=== PATIENT | male | born 1955 | race Caucasian/White ===

== ENCOUNTER 2017-04-10 20:27 | Inpatient (IN) | payer MEDICARE, OTHER ==
[~2017-04-10] VITALS: Ht 170.2 cm; Wt 83.0 kg
[~2017-04-10 20:27] MED LIST: ABILIFY10 MG ORAL; AMIODARONE HCL400 M1 ORAL; ASPIR 8181 MG ORAL; BACTRIM DS TAB1 EAC1 ORAL; BACTRIM-DS1 EA ORAL; BUPROPION HCL100 MG ORAL; BYSTOLIC2.5 MG ORAL; CEPHALEXIN500 MG ORAL; CYMBALTA20 MG ORAL; ECOTRIN325 MG PO; EFFIENT10 MG PO; HUMALOG100 UNIT/1 SUBQ; HUMALOG100 UNIT/4 SUBQ; INVOKANA100 MG PO; KLONOPIN1 MG ORAL; LANSOPRAZOLE30 MG ORAL; LANTUS SOL100 UNIT/1 SUBQ; LASIX20 M1 ORAL; LISINOPRIL10 MG ORAL; LYRICA75 M1 ORAL; METOPROLOL TART25 MG ORAL; NIASPAN1000 MG ORAL; NORCO 5-325 TA1 EACH ORAL; ONGLYZA5 MG PO; PERMETHRIN60 GM TOPIC; POTASSIUM CHLO20 ME1 ORAL; PROTONIX40 MG ORAL; TAMSULOSIN HCL0.4 MG ORAL; TENORMIN25 MG ORAL; WELCHOL625 MG ORAL; WELLBUTRIN SR100 MG ORAL; ZETIA10 MG ORAL; ZOLPIDEM TARTRA10 MG ORAL; lantus solostar SQ
[2017-04-10 20:30] VITALS: BP 107/68
[2017-04-10 20:35] VITALS: BP 107/68
[2017-04-10] MEDS ORDERED: Aspirin Baby 81mg ORAL ONE (21:30)
--- NOTE | 2017-04-10 21:53 | Emergency Room Report ---
History of Present Illness General Chief Complaint: Abdominal Pain Source: Patient Present Illness HPI Is a 61-year-old male with a history diabetes and high blood pressure. Also history of CAD with previous MIs and stents. His last stress test was about 2 years ago. He presents with chief complaint of chest pressure with exertion. This has been ongoing for last 2 days. On and off. Lasted about 5 minutes and resolved with rest. he said his pain start epigastric area and radiate to his neck. He called 911. He has no pain now. EMS did not give him aspirin or nitroglycerin. Allergies: Coded Allergies: SHELLFISH DERIVED (Verified Allergy, Severe, facial swelling, 01/03/13) ERYTHROMYCIN BASE (Unverified Allergy, Intermediate, 04/10/17) ETHYL ALCOHOL (Unverified Allergy, Intermediate, 04/10/17) LEVOFLOXACIN (Verified Allergy, Intermediate, Rash, 10/19/14) Uncoded Allergies: satins (Allergy, Mild, Rash, 08/11/15) Patient History Past Medical History: see triage record, old chart reviewed, DM, HTN, VT, CAD, psych hx Past Surgical History: other Pertinent Family History: none Social History: Denies: smoking Immunizations: other Reviewed Nursing Documentation: PMH: Agreed, PSxH: Agreed Nursing Documentation-PMH Hx Cardiac Problems: Yes - stent, heart attack 2014, bypass 2014 Hx Pacemaker: No - FOOT DROP JAN Hx Diabetes: Yes Review of Systems Eye: Denies: eye pain, blurred vision ENT: Denies: ear pain, nose congestion, throat swelling Respiratory: Denies: cough, shortness of breath Cardiovascular: Reports: chest pain, Denies: palpitations Gastrointestinal: Denies: abdominal pain, diarrhea, nausea, vomiting Musculoskeletal: Denies: back pain, joint pain Skin: Denies: rash Neurological: Denies: headache, numbness Endocrine: Denies: increased thirst, increased urine Hematologic/Lymphatic: Denies: easy bruising All Other Systems: negative except mentioned in HPI Physical Exam Vital Signs Date Time Temp Pulse Resp B/P (MAP) Pulse Ox O2 Delivery O2 Flow Rate FiO2 04/10/17 20:19 98.6 88 16 107/68 99 Room Air 98.6 vitals normal Sp02 EP Interpretation: reviewed, normal General Appearance: well appearing, no apparent distress, alert Head: normocephalic, atraumatic Eyes: bilateral eye PERRL, bilateral eye EOMI ENT: hearing grossly normal, normal pharynx Neck: full range of motion, supple, no meningismus Respiratory: chest non-tender, lungs clear, normal breath sounds Cardiovascular #1: regular rate, rhythm, no murmur Gastrointestinal: normal bowel sounds, non tender, no mass, no organomegaly, no bruit, non-distended Musculoskeletal: back normal, gait/station normal, normal range of motion Psychiatric: mood/affect normal Skin: warm/dry Medical Decision Making Diagnostic Impression: Primary Impression: ACS (acute coronary syndrome) ER Course This patient presents with symptom concerning for ACS and unstable angina. He is pain-free arrival. Aspirin given here. Lovenox given here. EKG is unremarkable. Troponin is intermediate. Will admit for further workup and cardiology consult. I contacted Dr. Smith who is covering for Dr. Luciano. Lab Results Impression labs with elevated troponin EKG Diagnostic Results Rate: normal Rhythm: NSR ST Segments: no acute changes ASA given to the pt in ED: Yes Rhythm Strip Diag. Results Rhythm Strip Time: 00:06 EP Interpretation: yes Rate: 82 Rhythm: NSR, no PVC's, no ectopy Chest X-Ray Diagnostic Results Chest X-Ray Diagnostic Results : Chest X-Ray Ordered: Yes # of Views/Limited/Complete: 1 View Indication: Chest Pain EP Interpretation: Yes Interpretation: no consolidation, no effusion, no pneumothorax, no acute cardiopulmonary disease Impression: No acute disease Last Vital Signs Date Time Temp Pulse Resp B/P (MAP) Pulse Ox O2 Delivery O2 Flow Rate FiO2 04/10/17 20:35 98.6 88 16 107/68 99 Room Air 98.6 Status: improved Disposition: ADMITTED INPATIENT Condition: Serious MERCY QUAN M.D. Apr 10, 2017 21:53
[2017-04-10 22:50] LABS: BASOPHILS % (AUTO) 1.3 % (0.0-2.0); EOSINOPHILS % (AUTO) 2.1 % (0.0-3.0); HEMATOCRIT 52.5 % (42.0-52.0); HEMOGLOBIN 17.7 G/DL (14.2-18.0); LYMPHOCYTES % (AUTO) 20.6 % (20.0-45.0); MEAN CORPUSCULAR VOLUME 88 FL (80-99); MONOCYTES % (AUTO) 8.6 % (1.0-10.0); NEUTROPHILS % (AUTO) 67.4 % (45.0-75.0); PLATELET COUNT 269 K/UL (150-450); RED BLOOD COUNT 5.99 M/UL (4.70-6.10); RED CELL DISTRIBUTION WIDTH 12.8 % (11.6-14.8); WHITE BLOOD COUNT 7.4 K/UL (4.8-10.8)
[2017-04-10 22:58] LABS: ANION GAP 3 mmol/L (5-15); BLOOD UREA NITROGEN 8 mg/dL (7-18); CALCIUM 9.9 MG/DL (8.5-10.1); CARBON DIOXIDE 32 MMOL/L (21-32); CHLORIDE 96 MMOL/L (98-107); CREATININE 0.9 MG/DL (0.55-1.30); POTASSIUM 4.1 MMOL/L (3.5-5.1); SODIUM 131 MMOL/L (136-145)
[2017-04-10 23:11] LABS: ALANINE AMINOTRANSFERASE 19 U/L (12-78); ALBUMIN 3.9 G/DL (3.4-5.0); ALKALINE PHOSPHATASE 112 U/L (46-116); ASPARTATE AMINO TRANSFERASE 13 U/L (15-37); BILIRUBIN,TOTAL 0.5 MG/DL (0.2-1.0); CKMB 1.5 NG/ML (0.0-3.6); CREATINE KINASE 61 U/L (26-308)
[2017-04-10] MEDS ORDERED: Enoxaparin 80mg Inj SUBQ ONE (23:30)
[2017-04-10 23:35] LABS: APPEARANCE,URINE CLEAR; BILIRUBIN, URINE NEGATIVE (NEGATIVE); COLOR,URINE PALE YELLOW; GLUCOSE, URINE (UA) 4+ (NEGATIVE); KETONES,URINE NEGATIVE (NEGATIVE); LEUKOCYTE ESTERASE ,URINE NEGATIVE (NEGATIVE); NITRITE,URINE NEGATIVE (NEGATIVE); PH,URINE 7 (4.5-8.0); PROTEIN,URINE NEGATIVE (NEGATIVE); UROBILINOGEN,URINE NORMAL MG/DL (0.0-1.0)
[2017-04-10] MEDS ORDERED: Enoxaparin 100mg Inj SUBQ ONE (23:45)
[2017-04-11 04:00] VITALS: BP 117/74
[2017-04-11 08:00] VITALS: BP 125/72
[2017-04-11] MEDS: Amiodarone 200mg tab ORAL SCH ×2 (09:00→09:50)
[2017-04-11] MEDS: Lyrica 50mg cap ORAL SCH ×2 (09:00→12:12)
[2017-04-11] MEDS: DULoxetine 30mg cap ORAL SCH (09:48)
[2017-04-11] MEDS: Aspirin Baby 81mg ORAL SCH (09:49)
--- NOTE | 2017-04-11 09:51 | Cardiac Electrophysiology PN ---
Subjective Subjective Cardiology consult dictated [id number] Objective Last 24 Hour Vital Signs Date Time Temp Pulse Resp B/P (MAP) Pulse Ox O2 Delivery O2 Flow Rate FiO2 04/11/17 04:00 97.4 79 20 117/74 96 Room Air 04/11/17 03:52 71 04/11/17 01:05 98.6 88 16 107/68 99 Room Air 98.6 04/10/17 20:35 98.6 88 16 107/68 99 Room Air 98.6 04/10/17 20:30 98.6 16 107/68 99 Room Air 98.6 04/10/17 20:19 98.6 88 16 107/68 99 Room Air 98.6 Intake and Output 04/10/17 04/11/17 19:00 07:00 Intake Total 0 ml Balance 0 ml Intake Oral 0 ml # Voids 1 Laboratory Tests Test 04/10/17 22:20 04/10/17 23:10 White Blood Count 7.4 K/UL (4.8-10.8) Red Blood Count 5.99 M/UL (4.70-6.10) Hemoglobin 17.7 G/DL (14.2-18.0) Hematocrit 52.5 % (42.0-52.0) H Mean Corpuscular Volume 88 FL (80-99) Mean Corpuscular Hemoglobin 29.6 PG (27.0-31.0) Mean Corpuscular Hemoglobin Concent 33.7 G/DL (32.0-36.0) Red Cell Distribution Width 12.8 % (11.6-14.8) Platelet Count 269 K/UL (150-450) Mean Platelet Volume 6.3 FL (6.5-10.1) L Neutrophils (%) (Auto) 67.4 % (45.0-75.0) Lymphocytes (%) (Auto) 20.6 % (20.0-45.0) Monocytes (%) (Auto) 8.6 % (1.0-10.0) Eosinophils (%) (Auto) 2.1 % (0.0-3.0) Basophils (%) (Auto) 1.3 % (0.0-2.0) Sodium Level 131 MMOL/L (136-145) L Potassium Level 4.1 MMOL/L (3.5-5.1) Chloride Level 96 MMOL/L (98-107) L Carbon Dioxide Level 32 MMOL/L (21-32) Anion Gap 3 mmol/L (5-15) L Blood Urea Nitrogen 8 mg/dL (7-18) Creatinine 0.9 MG/DL (0.55-1.30) Estimat Glomerular Filtration Rate > 60 mL/min (>60) Glucose Level 253 MG/DL (74-106) H Calcium Level 9.9 MG/DL (8.5-10.1) Total Bilirubin 0.5 MG/DL (0.2-1.0) Aspartate Amino Transf (AST/SGOT) 13 U/L (15-37) L Alanine Aminotransferase (ALT/SGPT) 19 U/L (12-78) Alkaline Phosphatase 112 U/L (46-116) Total Creatine Kinase 61 U/L (26-308) Creatine Kinase MB 1.5 NG/ML (0.0-3.6) Creatine Kinase MB Relative Index 2.4 Troponin I 0.071 ng/mL (0.000-0.056) Total Protein 8.0 G/DL (6.4-8.2) Albumin 3.9 G/DL (3.4-5.0) Globulin 4.1 g/dL Albumin/Globulin Ratio 1.0 (1.0-2.7) Urine Color Pale yellow Urine Appearance Clear Urine pH 7 (4.5-8.0) Urine Specific [place] 1.010 (1.005-1.035) Urine Protein Negative (NEGATIVE) Urine Glucose (UA) 4+ (NEGATIVE) H Urine Ketones Negative (NEGATIVE) Urine Occult Blood Negative (NEGATIVE) Urine Nitrite Negative (NEGATIVE) Urine Bilirubin Negative (NEGATIVE) Urine Urobilinogen Normal MG/DL (0.0-1.0) Urine Leukocyte Esterase Negative (NEGATIVE) Urine Opiates Screen Negative (NEGATIVE) Urine Barbiturates Screen Negative (NEGATIVE) Phencyclidine (PCP) Screen Negative (NEGATIVE) Urine Amphetamines Screen Negative (NEGATIVE) Urine Benzodiazepines Screen Negative (NEGATIVE) Urine Cocaine Screen Negative (NEGATIVE) Urine Marijuana (THC) Screen Negative (NEGATIVE) ANDREW BELTRAN Apr 11, 2017 09:51
[2017-04-11 10:23] LABS: BASOPHILS % (AUTO) 0.4 % (0.0-2.0); EOSINOPHILS % (AUTO) 1.9 % (0.0-3.0); HEMATOCRIT 56.1 % (42.0-52.0); LYMPHOCYTES % (AUTO) 16.5 % (20.0-45.0); MEAN CORPUSCULAR VOLUME 88 FL (80-99); MONOCYTES % (AUTO) 9.7 % (1.0-10.0); NEUTROPHILS % (AUTO) 71.5 % (45.0-75.0); PLATELET COUNT 279 K/UL (150-450); RED BLOOD COUNT 6.35 M/UL (4.70-6.10); RED CELL DISTRIBUTION WIDTH 12.7 % (11.6-14.8); WHITE BLOOD COUNT 7.8 K/UL (4.8-10.8)
[2017-04-11 10:27] LABS: HEMOGLOBIN 18.3 G/DL (14.2-18.0)
[2017-04-11 10:35] LABS: ANION GAP 11 mmol/L (5-15); BLOOD UREA NITROGEN 9 mg/dL (7-18); CALCIUM 10.1 MG/DL (8.5-10.1); CARBON DIOXIDE 26 MMOL/L (21-32); CHLORIDE 96 MMOL/L (98-107); CREATININE 0.9 MG/DL (0.55-1.30); POTASSIUM 4.5 MMOL/L (3.5-5.1); SODIUM 133 MMOL/L (136-145)
--- NOTE | 2017-04-11 10:36 | Cardiology Report ---
APPROVED REPORT EKG Measurement Heart [id number] Normal sinus rhythm Left axis deviation Inferior infarct, age undetermined Abnormal ECG
--- NOTE | 2017-04-11 10:38 | Cardiology Report ---
APPROVED REPORT EKG Measurement Heart [id number] Normal sinus rhythm Left posterior fascicular block Anteroseptal infarct, age undetermined Abnormal ECG
--- NOTE | 2017-04-11 10:44 | Diagnostic Imaging Report ---
Indication: Dyspnea Comparison: None A single view chest radiograph was obtained. Findings: No definite infiltrate or pulmonary vascular congestion identified. The heart is normal in size. Sternotomy noted.. The aorta is mildly enlarged consistent with atherosclerotic vascular disease. The bones are osteopenic. Impression: No acute disease
[2017-04-11 10:49] LABS: CHOLESTEROL 207 MG/DL (< 200); HDL CHOLESTEROL 25 MG/DL (40-60); TRIGLYCERIDES 466 MG/DL (30-150)
[2017-04-11 12:00] VITALS: BP 133/84
[2017-04-11] MEDS: BuPROPion SR 150mg tab ORAL SCH (12:12)
[2017-04-11] MEDS ORDERED: Levemir Flexpen SUBQ SCH (14:00)
--- NOTE | 2017-04-11 14:56 | History and Physical ---
History of Present Illness General Date patient seen: Apr 11, 2017 Time patient seen: 14:56 Reason for Hospitalization: chest pain Present Illness HPI 61y/o male with pmh of CAD s/ PCI (05/2014) s/p CABG (11/2014), HTN, HLD, pAfib, depression, GERD, DM2 (on insulin) who presents with chest pain. Pt c/o chest pressure w/ exertion that has been off an on for the last 2 days. It lasts abt 5 min and resolves w/ rests. Some associated SOB, but denies f/c, n/v, d/c, cough, diaphoresis, dizziness. In ED, pt given ASA and Lovenox. He had improvement in pain. Trop mildly elevated to 0.07. Allergies: Coded Allergies: SHELLFISH DERIVED (Verified Allergy, Severe, facial swelling, 01/03/13) ERYTHROMYCIN BASE (Unverified Allergy, Intermediate, 04/10/17) ETHYL ALCOHOL (Unverified Allergy, Intermediate, 04/10/17) LEVOFLOXACIN (Verified Allergy, Intermediate, Rash, 10/19/14) Uncoded Allergies: satins (Allergy, Mild, Rash, 08/11/15) Medication History Scheduled Amiodarone Hcl* (Amiodarone Hcl*), 200 MG ORAL daily, (Reported) Aripiprazole* (Abilify*), 5 MG ORAL DAILY, (Reported) Bupropion Sr* (Wellbutrin Sr*), 150 MG ORAL daily, (Reported) Canagliflozin (Invokana), 100 MG PO daily, (Reported) Clonazepam* (Klonopin*), 1 MG ORAL Q6H, (Reported) Colesevelam Hcl (Welchol), 1,875 MG ORAL bid, (Reported) Duloxetine (Cymbalta), 60 MG ORAL DAILY, (Reported) Ezetimibe (Zetia*), 10 MG ORAL daily, (Reported) Furosemide* (Lasix*), 20 MG ORAL DAILY, (Reported) Insulin Glargine (Lantus), 30 SUBQ daily, (Reported) Nebivolol Hcl* (Bystolic*), 5 MG ORAL DAILY, (Reported) Pantoprazole* (Protonix*), 40 MG ORAL DAILY, (Reported) Potassium Chloride* (K-Dur*), 20 MEQ ORAL DAILY, (Reported) Prasugrel Hcl (Effient), 10 MG PO daily, (Reported) Pregabalin* (Lyrica*), 50 MG ORAL THREE TIMES A DAY, (Reported) Patient History Healthcare decision maker Resuscitation status Full Code Advanced Directive on File No Past Medical/Surgical History Past Medical/Surgical History: (1) HTN (hypertension) (2) HLD (hyperlipidemia) (3) Paroxysmal atrial fibrillation (4) CAD s/p PCI s/p CABG (5) DM2 (diabetes mellitus, type 2) (6) GERD (gastroesophageal reflux disease) Family History Family History: Patient reports no known family medical history. Social History Social History: (1) lives in [facility] (2) former smoker, now uses vaporizer Review of Systems Constitutional: Reports: no symptoms Eye: Reports: no symptoms ENT: Reports: no symptoms Respiratory: Reports: shortness of breath Cardiovascular: Reports: chest pain Gastrointestinal: Reports: no symptoms Genitourinary: Reports: no symptoms Musculoskeletal: Reports: no symptoms Skin: Reports: no symptoms Psychiatric: Reports: no symptoms Neurological: Reports: no symptoms Endocrine: Reports: no symptoms Hematologic/Lymphatic: Reports: no symptoms Physical Exam Physical Exam Narrative General: alert, cooperative, no distress, appears stated age Head: normocephalic, without obvious abnormality, atraumatic Eyes: conjunctivae/corneas clear. PERRL, EOM's intact Throat: lips, mucosa, and tongue normal. MMM Neck: supple, symmetrical, trachea midline, and no JVD Lungs: clear to auscultation bilaterally Heart: regular rate and rhythm, S1, S2 normal, no murmur, click, rub or gallop Abdomen: soft, non-tender, non-distended, bowel sounds normal; no masses or organomegaly Extremities: extremities normal, atraumatic, no cyanosis or edema Pulses: 2+ and symmetric Skin: skin color, texture, turgor normal; no rashes or lesions Neurologic: grossly normal, no focal deficits Last 24 Hour Vital Signs Date Time Temp Pulse Resp B/P (MAP) Pulse Ox O2 Delivery O2 Flow Rate FiO2 04/11/17 04:00 97.4 79 20 117/74 96 Room Air 04/11/17 03:52 71 04/11/17 01:05 98.6 88 16 107/68 99 Room Air 98.6 04/10/17 20:35 98.6 88 16 107/68 99 Room Air 98.6 04/10/17 20:30 98.6 16 107/68 99 Room Air 98.6 04/10/17 20:19 98.6 88 16 107/68 99 Room Air 98.6 Intake and Output 04/10/17 04/11/17 19:00 07:00 Intake Total 0 ml Balance 0 ml Intake Oral 0 ml # Voids 1 Laboratory Tests Test 04/10/17 22:20 04/10/17 23:10 04/11/17 09:30 White Blood Count 7.4 K/UL (4.8-10.8) 7.8 K/UL (4.8-10.8) Red Blood Count 5.99 M/UL (4.70-6.10) 6.35 M/UL (4.70-6.10) H Hemoglobin 17.7 G/DL (14.2-18.0) 18.3 G/DL (14.2-18.0) *H Hematocrit 52.5 % (42.0-52.0) H 56.1 % (42.0-52.0) H Mean Corpuscular Volume 88 FL (80-99) 88 FL (80-99) Mean Corpuscular Hemoglobin 29.6 PG (27.0-31.0) 28.8 PG (27.0-31.0) Mean Corpuscular Hemoglobin Concent 33.7 G/DL (32.0-36.0) 32.6 G/DL (32.0-36.0) Red Cell Distribution Width 12.8 % (11.6-14.8) 12.7 % (11.6-14.8) Platelet Count 269 K/UL (150-450) 279 K/UL (150-450) Mean Platelet Volume 6.3 FL (6.5-10.1) L 6.4 FL (6.5-10.1) L Neutrophils (%) (Auto) 67.4 % (45.0-75.0) 71.5 % (45.0-75.0) Lymphocytes (%) (Auto) 20.6 % (20.0-45.0) 16.5 % (20.0-45.0) L Monocytes (%) (Auto) 8.6 % (1.0-10.0) 9.7 % (1.0-10.0) Eosinophils (%) (Auto) 2.1 % (0.0-3.0) 1.9 % (0.0-3.0) Basophils (%) (Auto) 1.3 % (0.0-2.0) 0.4 % (0.0-2.0) Sodium Level 131 MMOL/L (136-145) L 133 MMOL/L (136-145) L Potassium Level 4.1 MMOL/L (3.5-5.1) 4.5 MMOL/L (3.5-5.1) Chloride Level 96 MMOL/L (98-107) L 96 MMOL/L (98-107) L Carbon Dioxide Level 32 MMOL/L (21-32) 26 MMOL/L (21-32) Anion Gap 3 mmol/L (5-15) L 11 mmol/L (5-15) Blood Urea Nitrogen 8 mg/dL (7-18) 9 mg/dL (7-18) Creatinine 0.9 MG/DL (0.55-1.30) 0.9 MG/DL (0.55-1.30) Estimat Glomerular Filtration Rate > 60 mL/min (>60) > 60 mL/min (>60) Glucose Level 253 MG/DL (74-106) H 248 MG/DL (74-106) H Calcium Level 9.9 MG/DL (8.5-10.1) 10.1 MG/DL (8.5-10.1) Total Bilirubin 0.5 MG/DL (0.2-1.0) Aspartate Amino Transf (AST/SGOT) 13 U/L (15-37) L Alanine Aminotransferase (ALT/SGPT) 19 U/L (12-78) Alkaline Phosphatase 112 U/L (46-116) Total Creatine Kinase 61 U/L (26-308) Creatine Kinase MB 1.5 NG/ML (0.0-3.6) Creatine Kinase MB Relative Index 2.4 Troponin I 0.071 ng/mL (0.000-0.056) 0.046 ng/mL (0.000-0.056) Total Protein 8.0 G/DL (6.4-8.2) Albumin 3.9 G/DL (3.4-5.0) Globulin 4.1 g/dL Albumin/Globulin Ratio 1.0 (1.0-2.7) Urine Color Pale yellow Urine Appearance Clear Urine pH 7 (4.5-8.0) Urine Specific [place] 1.010 (1.005-1.035) Urine Protein Negative (NEGATIVE) Urine Glucose (UA) 4+ (NEGATIVE) H Urine Ketones Negative (NEGATIVE) Urine Occult Blood Negative (NEGATIVE) Urine Nitrite Negative (NEGATIVE) Urine Bilirubin Negative (NEGATIVE) Urine Urobilinogen Normal MG/DL (0.0-1.0) Urine Leukocyte Esterase Negative (NEGATIVE) Urine Opiates Screen Negative (NEGATIVE) Urine Barbiturates Screen Negative (NEGATIVE) Phencyclidine (PCP) Screen Negative (NEGATIVE) Urine Amphetamines Screen Negative (NEGATIVE) Urine Benzodiazepines Screen Negative (NEGATIVE) Urine Cocaine Screen Negative (NEGATIVE) Urine Marijuana (THC) Screen Negative (NEGATIVE) Hemoglobin A1c 8.7 % (4.3-6.0) H Pro-B-Type Natriuretic Peptide 224 pg/mL (0-125) H Triglycerides Level 466 MG/DL (30-150) H Cholesterol Level 207 MG/DL (< 200) H LDL Cholesterol 131 mg/dL (<100) H HDL Cholesterol 25 MG/DL (40-60) L Cholesterol/HDL Ratio 8.3 (3.3-4.4) H Thyroid Stimulating Hormone (TSH) 0.028 uiU/mL (0.358-3.740) Free Thyroxine 1.29 NG/DL (0.76-1.46) Height (Feet): 5 Height (Inches): 7.00 Weight (Pounds): 183 Medications Current Medications Medications (Trade) Dose Ordered Sig/Indra Route PRN Reason Start Time Stop Time Status Last Admin Dose Admin Aripiprazole (Abilify) 5 mg DAILY ORAL 04/11/17 09:00 05/11/17 08:59 04/11/17 09:48 Aspirin (ASA) 81 mg DAILY ORAL 04/11/17 09:00 05/11/17 08:59 04/11/17 09:49 Bupropion HCl (Wellbutrin SR) 150 mg DAILY ORAL 04/11/17 09:00 05/11/17 08:59 04/11/17 12:12 Clonazepam (KlonoPIN) 1 mg Q6H ORAL 04/11/17 06:30 04/18/17 06:29 04/11/17 12:12 Clopidogrel Bisulfate (Plavix) 75 mg DAILY ORAL 04/11/17 14:00 05/11/17 13:59 Dextrose (Dextrose 50%) STAT PRN IV Hypoglycemia 04/11/17 13:45 05/11/17 13:44 Duloxetine HCl (Cymbalta) 60 mg DAILY ORAL 04/11/17 09:00 05/11/17 08:59 04/11/17 09:48 EZETIMIBE (Zetia) 10 mg daily ORAL 04/11/17 09:00 05/11/17 08:59 04/11/17 09:49 Insulin Aspart (NovoLOG) BEFORE MEALS AND HS SUBQ 04/11/17 16:30 05/11/17 16:29 Insulin Detemir (Levemir) 25 units DAILY SUBQ 04/11/17 14:00 05/11/17 13:59 Nebivolol (Bystolic) 5 mg DAILY ORAL 04/11/17 14:00 05/11/17 13:59 Pantoprazole (Protonix) 40 mg DAILY ORAL 04/11/17 09:00 05/11/17 08:59 04/11/17 09:48 Regadenoson (Lexiscan) 0.4 mg ONCE PRN IV Stress Test 04/12/17 09:00 04/12/17 18:00 Sitagliptin Phosphate (Januvia) 50 mg ACBREAKFAST ORAL 04/11/17 16:30 05/11/17 16:29 Terbinafine HCl (LamISIL) 250 mg DAILY ORAL 04/11/17 15:00 04/18/17 14:59 Assessment/Plan Problem List: (1) Unstable angina/NSTEMI (2) CAD s/p PCI s/p CABG (3) DM2 (diabetes mellitus, type 2) ICD Codes: E11.9 - Type 2 diabetes mellitus without complications SNOMED: 22415671 (4) HLD (hyperlipidemia) ICD Codes: E78.5 - Hyperlipidemia, unspecified SNOMED: 81620209 (5) HTN (hypertension) ICD Codes: I10 - Essential (primary) hypertension SNOMED: 37394824 (6) GERD (gastroesophageal reflux disease) ICD Codes: K21.9 - Gastro-esophageal reflux disease without esophagitis SNOMED: 009576960 Status: stable Assessment/Plan Admit to tele Trend trop/EKG Check TTE Cardiology consult Likely needs stress test vs cath given h/o CAD, elevated trop Check lipid panel, TSH, A1C ASA, zetia Not on statin 2/2 h/o rhabdomyolysis while on statin Cont home meds: pt on prasugrel but [facility] will sub-in plavix Pain control, bowel regimen Supportive care DVT Prophylaxis: SCD, HSQ Code Status: Full Hospital Classification Declaration: Based on this initial evaluation, and depending on the patient's clinical course, I anticipate that this patient will require hospitalization for 1-3 days for unstable angina vs NSTEMI, and close respiratory/hemodynamic monitoring. Disposition: Once the patient is stable to leave the hospital, I anticipate the patient will likely be discharged to the following environment: back to [facility] I spent 72 minutes on this patient's case, and >50% was dedicated to counseling and/or care coordination. Discussed with patient/family, nursing staff, SW/CM, cardiology regarding clinical status, treatment course, and disposition planning. Time of note may not reflect time of encounter. Jami Bonds M.D. Apr 11, 2017 14:56
[2017-04-11] MEDS: Levemir Flexpen SUBQ SCH (15:08)
[2017-04-11 16:00] VITALS: BP 121/77
[2017-04-11] MEDS: sitaGLIPtin 50mg tab ORAL SCH (16:59)
[2017-04-11] MEDS: NovoLOG Insulin Flexpen SUBQ SCH ×2 (17:00→20:53)
--- NOTE | 2017-04-11 18:02 | Consultation ---
DATE OF CONSULTATION: 04/11/2017 CARDIOLOGY CONSULTATION CONSULTING PHYSICIAN: Daniel Dacosta M.D. REFERRING PHYSICIAN: Vikram Luciano M.D. REASON FOR CONSULTATION: Chest pain. HISTORY OF PRESENT ILLNESS: The patient is a very pleasant, 61-year-old, gentleman with history of hypertension, diabetes, coronary artery disease, history of prior stent placement, as well as history of coronary artery bypass graft in [address] [facility]. The patient presented to the emergency room complaining of chest pain with exertion that has been going on for 2 to 3 days. The pain has been off and on. The pain resolved at rest. The pain was in epigastric area with radiation to his back. The patient called 911 and brought to the emergency room. The patient was admitted and a Cardiology consultation was obtained for further evaluation and management. PAST MEDICAL HISTORY: 1. Hypertension. 2. Diabetes. 3. History of coronary artery bypass graft. 4. History of prior psychiatric history. 5. Bilateral footdrop. SOCIAL HISTORY: Denies smoking or drinking alcohol. FAMILY HISTORY: Noncontributory. REVIEW OF SYSTEMS: His review of systems was thoroughly performed and was negative other than what was mentioned in the history of present illness. PHYSICAL EXAMINATION: VITAL SIGNS: Blood pressure is 117/74, pulse 79, respirations 18, and temperature 97.4 degrees. HEAD AND NECK: No JVD. LUNGS: Clear. CARDIOVASCULAR: Regular S1 and S2 with no gallop or murmur. ABDOMEN: Soft. EXTREMITIES: No pitting edema. LABORATORY AND DIAGNOSTIC DATA: His EKG showed sinus rhythm with left posterior fascicular block and old anteroseptal infarct. Labs show white count of 7.4, hemoglobin of 17.7, hematocrit 52.4 and platelet count of 269. Sodium 131, potassium is 4.1, BUN of 8, creatinine 0.9 and glucose of 253. Troponin is 0.071. His urine toxicology screen is negative. ASSESSMENT AND PLAN: 1. Dyspnea on exertion. Troponin elevation of 0.071. We will completely rule out myocardial infarction protocol. Repeat the EKG and echocardiogram. If the troponin remains borderline, we will proceed with nuclear stress test for further evaluation; however, if troponin is rising, the patient will need be transferred for cardiac catheterization. In the meantime, the patient will be treated medically with aspirin, Lipitor and add Lopressor to his medical regimen and Lovenox until troponins are coming down. 2. Question of paroxysmal atrial fibrillation, as the patient is on amiodarone 200 mg daily, currently in sinus rhythm. Keep him on aspirin. 3. History of coronary artery bypass graft. 4. Depression, on Abilify, Wellbutrin, and Cymbalta. 5. Hyperlipidemia, on Zetia and Lipitor. Thank you very much, Dr. Luciano, for allowing me to participate in the care of this patient. Please do not hesitate to contact me for any questions regarding my evaluation. Daniel Dacosta M.D. DR: MILES JOB#: [id number] CC:
[2017-04-11 20:00] VITALS: BP 123/79
[2017-04-11] MEDS: Heparin 5000 units/ml inj SUBQ SCH (20:54)
[2017-04-11] MEDS ORDERED: Atorvastatin 80mg tab ORAL SCH (21:00)
[2017-04-12] VITALS: BP 126/62
[2017-04-12 04:00] VITALS: BP 126/74
[2017-04-12] MEDS: NovoLOG Insulin Flexpen SUBQ SCH ×3 (06:26→18:22)
[2017-04-12] MEDS: sitaGLIPtin 50mg tab ORAL SCH (06:30)
[2017-04-12 07:16] LABS: BASOPHILS % (AUTO) 1.1 % (0.0-2.0); EOSINOPHILS % (AUTO) 2.4 % (0.0-3.0); HEMATOCRIT 53.4 % (42.0-52.0); LYMPHOCYTES % (AUTO) 15.9 % (20.0-45.0); MEAN CORPUSCULAR VOLUME 89 FL (80-99); NEUTROPHILS % (AUTO) 71.7 % (45.0-75.0); PLATELET COUNT 250 K/UL (150-450); RED BLOOD COUNT 6.03 M/UL (4.70-6.10); RED CELL DISTRIBUTION WIDTH 12.7 % (11.6-14.8); WHITE BLOOD COUNT 8.1 K/UL (4.8-10.8)
[2017-04-12 08:00] VITALS: BP 121/82
--- NOTE | 2017-04-12 08:46 | Cardiac Electrophysiology PN ---
Assessment/Plan Assessment/Plan 1. Troponin leak. Levels flat. No chest pain. Awaiting nuclear stress test today. Continue aspirin,Plavix, Lipitor and Bystolic. 2. ? Paroxysmal atrial fibrillation, says not getting amiodarone anymore as had high LFTs per pT, currently in sinus rhythm on aspirin. 3. History of coronary artery bypass graft. 4. Depression, on Abilify, Wellbutrin, and Cymbalta. 5. Hyperlipidemia, on Zetia and Lipitor. JANAK RN Subjective Subjective Feeling better. NPO for stress test today. Objective Last 24 Hour Vital Signs Date Time Temp Pulse Resp B/P (MAP) Pulse Ox O2 Delivery O2 Flow Rate FiO2 04/12/17 04:00 76 04/12/17 04:00 96.5 80 20 126/74 98 Room Air 04/12/17 00:00 75 04/12/17 00:00 97.4 72 18 126/62 96 Room Air 04/11/17 20:00 86 04/11/17 20:00 97.3 75 18 123/79 93 Room Air 04/11/17 16:00 98.2 73 18 121/77 97 Room Air 04/11/17 16:00 84 04/11/17 12:00 86 04/11/17 12:00 98.1 85 18 133/84 94 Room Air Intake and Output 04/11/17 04/12/17 19:00 07:00 Intake Total 480 ml 120 ml Balance 480 ml 120 ml Intake Oral 480 ml 120 ml # Voids 1 2 Laboratory Tests Test 04/11/17 09:30 04/11/17 17:35 04/12/17 06:10 04/12/17 08:00 White Blood Count 7.8 K/UL (4.8-10.8) 8.1 K/UL (4.8-10.8) Red Blood Count 6.35 M/UL (4.70-6.10) H 6.03 M/UL (4.70-6.10) Hemoglobin 18.3 G/DL (14.2-18.0) *H 18.0 G/DL (14.2-18.0) Hematocrit 56.1 % (42.0-52.0) H 53.4 % (42.0-52.0) H Mean Corpuscular Volume 88 FL (80-99) 89 FL (80-99) Mean Corpuscular Hemoglobin 28.8 PG (27.0-31.0) 29.8 PG (27.0-31.0) Mean Corpuscular Hemoglobin Concent 32.6 G/DL (32.0-36.0) 33.7 G/DL (32.0-36.0) Red Cell Distribution Width 12.7 % (11.6-14.8) 12.7 % (11.6-14.8) Platelet Count 279 K/UL (150-450) 250 K/UL (150-450) Mean Platelet Volume 6.4 FL (6.5-10.1) L 6.6 FL (6.5-10.1) Neutrophils (%) (Auto) 71.5 % (45.0-75.0) 71.7 % (45.0-75.0) Lymphocytes (%) (Auto) 16.5 % (20.0-45.0) L 15.9 % (20.0-45.0) L Monocytes (%) (Auto) 9.7 % (1.0-10.0) 9.0 % (1.0-10.0) Eosinophils (%) (Auto) 1.9 % (0.0-3.0) 2.4 % (0.0-3.0) Basophils (%) (Auto) 0.4 % (0.0-2.0) 1.1 % (0.0-2.0) Sodium Level 133 MMOL/L (136-145) L Pending Potassium Level 4.5 MMOL/L (3.5-5.1) Pending Chloride Level 96 MMOL/L (98-107) L Pending Carbon Dioxide Level 26 MMOL/L (21-32) Pending Anion Gap 11 mmol/L (5-15) Blood Urea Nitrogen 9 mg/dL (7-18) Pending Creatinine 0.9 MG/DL (0.55-1.30) Pending Estimat Glomerular Filtration Rate > 60 mL/min (>60) Pending Glucose Level 248 MG/DL (74-106) H Pending Hemoglobin A1c 8.7 % (4.3-6.0) H Calcium Level 10.1 MG/DL (8.5-10.1) Pending Troponin I 0.046 ng/mL (0.000-0.056) 0.071 ng/mL (0.000-0.056) 0.067 ng/mL (0.000-0.056) Pro-B-Type Natriuretic Peptide 224 pg/mL (0-125) H Pending Triglycerides Level 466 MG/DL (30-150) H Cholesterol Level 207 MG/DL (< 200) H LDL Cholesterol 131 mg/dL (<100) H HDL Cholesterol 25 MG/DL (40-60) L Cholesterol/HDL Ratio 8.3 (3.3-4.4) H Thyroid Stimulating Hormone (TSH) 0.028 uiU/mL (0.358-3.740) Free Thyroxine 1.29 NG/DL (0.76-1.46) Objective HEAD AND NECK: No JVD. LUNGS: Clear. CARDIOVASCULAR: S1 and S2 with no gallop or murmur. ABDOMEN: Soft. EXTREMITIES: No pitting edema. ANDREW BELTRAN Apr 12, 2017 08:46
[2017-04-12] MEDS ORDERED: Lexiscan 0.4mg/5ml syringe IV PRN (09:00)
[2017-04-12 09:38] LABS: ANION GAP 3 mmol/L (5-15); BLOOD UREA NITROGEN 11 mg/dL (7-18); CALCIUM 9.4 MG/DL (8.5-10.1); CARBON DIOXIDE 32 MMOL/L (21-32); CHLORIDE 101 MMOL/L (98-107); CREATININE 0.8 MG/DL (0.55-1.30); SODIUM 136 MMOL/L (136-145)
[2017-04-12] MEDS: Aspirin Baby 81mg ORAL SCH (10:42)
[2017-04-12] MEDS: BuPROPion SR 150mg tab ORAL SCH (10:42)
[2017-04-12] MEDS: DULoxetine 30mg cap ORAL SCH (10:42)
[2017-04-12] MEDS: Heparin 5000 units/ml inj SUBQ SCH (10:50)
[2017-04-12] MEDS: Levemir Flexpen SUBQ SCH (10:53)
[2017-04-12 12:00] VITALS: BP 142/89
--- NOTE | 2017-04-12 14:10 | Cardiology Report ---
APPROVED REPORT EKG Measurement Heart [id number] Normal sinus rhythm Indeterminate axis Inferior infarct, age undetermined Abnormal ECG
[2017-04-12 16:00] VITALS: BP 137/84
--- NOTE | 2017-04-12 16:07 | Diagnostic Imaging Report ---
Indications: Chest pain, history of prior IN, history of CABG in 2015 Technique: Single day single isotope protocol utilized. Initially, resting images obtained using IV administration 10.8 millicuries 99M technetium Myoview. Subsequently, patient underwent lexiscan stress testing. See cardiology report for details. During Lexiscan infusion, IV administration 31.8 mCi 99 M technetium Myoview. SPECT and planar images obtained. SPECT images gated to 8 phases of the cardiac cycle were also obtained, and reformatted into cine images for evaluation of ejection fraction. Comparison: none Findings: Per cardiology report, patient experienced no symptoms. Per cardiology report, resting EKG demonstrates normal sinus rhythm with left axis deviation. Cardiology report describes no ST changes during the infusion. Imaging demonstrates a large perfusion defect involving the inferolateral wall extending to the apex. This is slightly smaller on the resting images, particularly near the base. There is mild left ventricular chamber dilatation Calculated post stress ejection fraction 73% there is slightly relatively decreased wall motion in the inferior wall Impression: Nonischemic clinical response to pharmacologic stress, per cardiology report Nonischemic electrocardiographic response to pharmacologic stress, per cardiology report Positive for large inferolateral infarct with some malia-infarct ischemia Calculated post stress ejection fraction 73%
[2017-04-12 20:00] VITALS: BP 133/75
--- NOTE | 2017-04-16 08:06 | Discharge Summary ---
Discharge Summary Hospital Course Date of Admission Apr 10, 2017 at 22:43 Date of Discharge Apr 12, 2017 at 20:15 Admitting Diagnosis Chest pain Reason for Hospitalization: Unstable angina/NSTEMI HPI 61y/o male with pmh of CAD s/ PCI (05/2014) s/p CABG (11/2014), HTN, HLD, pAfib, depression, GERD, DM2 (on insulin) who presents with chest pain. Pt c/o chest pressure w/ exertion that has been off an on for the last 2 days. It lasts abt 5 min and resolves w/ rests. Some associated SOB, but denies f/c, n/v, d/c, cough, diaphoresis, dizziness. In ED, pt given ASA and Lovenox. He had improvement in pain. Trop mildly elevated to 0.07. Consultations Cardiology Hospital Course Pt was admitted to [facility] and seen by cardiology. Troponin peaked at 0.07. Pt underwent nuclear cardiac stress test which showed only fixed defects and no reversible defects. Pt's chest pain iproved. His medications were optimized. He was cleared for discharge by cardiology. Discharge physical exam: General: alert, cooperative, no distress, appears stated age Head: normocephalic, without obvious abnormality, atraumatic Eyes: conjunctivae/corneas clear. PERRL, EOM's intact Throat: lips, mucosa, and tongue normal. MMM Neck: supple, symmetrical, trachea midline, and no JVD Lungs: clear to auscultation bilaterally Heart: regular rate and rhythm, S1, S2 normal, no murmur, click, rub or gallop Abdomen: soft, non-tender, non-distended, bowel sounds normal; no masses or organomegaly Extremities: extremities normal, atraumatic, no cyanosis or edema Pulses: 2+ and symmetric Skin: skin color, texture, turgor normal; no rashes or lesions Neurologic: grossly normal, no focal deficits Discharge diagnoses: (1) Unstable angina/NSTEMI (2) CAD s/p PCI s/p CABG (3) DM2 (diabetes mellitus, type 2) ICD Codes: E11.9 - Type 2 diabetes mellitus without complications SNOMED: 07496333 (4) HLD (hyperlipidemia) ICD Codes: E78.5 - Hyperlipidemia, unspecified SNOMED: 91900163 (5) HTN (hypertension) ICD Codes: I10 - Essential (primary) hypertension SNOMED: 60152931 (6) GERD (gastroesophageal reflux disease) ICD Codes: K21.9 - Gastro-esophageal reflux disease without esophagitis SNOMED: 958912624 Discharge Medications Continued Medications: Aripiprazole* (Abilify*) 10 Mg Tablet 5 MG ORAL DAILY, TAB Bupropion Sr* (Wellbutrin Sr*) 100 Mg Tablet.er 150 MG ORAL daily for 30 Days, TAB 0 Refills Canagliflozin (Invokana) 100 Mg Tablet 100 MG PO daily, TAB Clonazepam* (Klonopin*) 1 Mg Tablet 1 MG ORAL Q6H, #15 TAB 0 Refills Duloxetine (Cymbalta) 20 Mg Cap 60 MG ORAL DAILY, CAP Ezetimibe (Zetia*) 10 Mg Tablet 10 MG ORAL daily, TAB Insulin Glargine (Lantus) 100 Unit/1 Ml Insuln.pen 30 SUBQ daily, #1 EA 0 Refills Nebivolol Hcl* (Bystolic*) 2.5 Mg Tablet 5 MG ORAL DAILY, TAB Pantoprazole* (Protonix*) 40 Mg Tablet.dr 40 MG ORAL DAILY, TAB Prasugrel Hcl (Effient) 10 Mg Tablet 10 MG PO daily, TAB Pregabalin* (Lyrica*) 75 Mg Capsule 50 MG ORAL THREE TIMES A DAY, CAP Discontinued Medications: Amiodarone Hcl* (Amiodarone Hcl*) 400 Mg Tablet 200 MG ORAL daily, TAB Colesevelam Hcl (Welchol) 625 Mg Tablet 1875 MG ORAL bid for 30 Days, TAB 0 Refills Furosemide* (Lasix*) 20 Mg Tablet 20 MG ORAL DAILY, TAB Potassium Chloride* (K-Dur*) 20 Meq Tab.er.prt 20 MEQ ORAL DAILY, #7 TAB 0 Refills Discharge Condition Upon Discharge: stable Discharge Disposition Patient was discharged to [facility] with home health Discharge Diagnoses: Jami Bonds M.D. Apr 16, 2017 08:06
--- NOTE | 2017-05-06 09:54 | Cardiology Report ---
APPROVED REPORT EXAM: Two-dimensional and M-mode echocardiogram with Doppler and color Doppler. INDICATION Chest Pain M-Mode DIMENSIONS IVSd1.3 (0.7-1.1cm)Left Atrium (MM)4.3 (1.6-4.0cm) LVDd3.8 (3.5-5.6cm)Aortic Root2.8 (2.0-3.7cm) PWd1.5 (0.7-1.1cm)Aortic Cusp Exc.1.7 (1.5-2.0cm) LVDs2.7 (2.5-4.0cm) PWs1.8 cm Technically difficult study due to poor acoustical windows. Normal left ventricular chamber size, systolic function and wall motion. Left ventricular ejection fraction estimated to be 70-75%. No evidence of left ventricular hypertrophy. Small posterioi pericardial effusion. All other cardiac chamber sizes are within normal limits. Focal aortic valve sclerosis with adequate cusp excursion. Thickened mitral valve leaflets with normal excursion. Mild mitral annulus and aortic root calcification. Pulmonic valve not well visualized. Normal tricuspid valve structure. IVC is normal in size and collapsible with respiration. A color flow and spectral Doppler study was performed and revealed: No aortic regurgitation. No mitral regurgitation. Mitral diastolic velocities suggest reduced left ventricular relaxation c/w diastolic dysfunction grade 1. No tricuspid regurgitation.
== END 2017-04-12 20:15 | disposition left against medical advice (07) | DRG 282 ==
LOC: EDBD 20:27 → EMR 22:38 → 2E 22:43 → EDBEDREQ 04-11 00:21 → 2E 04-11 01:35
DX: I21.4 Non-ST elevation (NSTEMI) myocardial infarction (principal); E11.9 Type 2 diabetes mellitus without complications; Z95.1 Presence of aortocoronary bypass graft; I10 Essential (primary) hypertension; I25.110 Atherosclerotic heart disease of native coronary artery with unstable angina pectoris; I48.0 Paroxysmal atrial fibrillation; E78.5 Hyperlipidemia, unspecified; K21.9 Gastro-esophageal reflux disease without esophagitis; F32.9 Major depressive disorder, single episode, unspecified; Z79.4 Long term (current) use of insulin; I20.0 Unstable angina
CPT/HCPCS: 36415; 71045; 78452; 80048; 80053; 80061; 80307; 81003; 82550; 82553; 82962; 83036; 83880; 84439; 84443; 84484; 85025; 87081; 93005; 93017; 93306; 99285; J1815; J2785; S5561

== ENCOUNTER 2019-04-28 15:32 | Emergency (ER) | payer MEDICARE, OTHER ==
[~2019-04-28] VITALS: Ht 170.2 cm; Wt 83.9 kg
[2019-04-28 15:55] VITALS: BP 165/95
[2019-04-28 16:25] VITALS: BP 165/95
--- NOTE | 2019-04-29 14:54 | Emergency Room Report ---
History of Present Illness General Chief Complaint: General Complaint Source: Patient, Medical Record Present Illness HPI 63-year-old male presents ED for evaluation. Brought in by EMS from home. Describes weakness in his legs. States he almost fell because his "legs gave out". Lives in assisted living facility. Denies pain to his legs. States that he has had this problem in the past. PMD planning to refer him to neurology. Denies any bowel or bladder incontinence. Denies any numbness or tingling to the legs. Denies any back pain. No other aggravating relieving factors. Denies any other associated symptoms Allergies: Coded Allergies: SHELLFISH DERIVED (Verified Allergy, Severe, facial swelling, 01/03/13) ERYTHROMYCIN BASE (Unverified Allergy, Intermediate, 04/10/17) ETHYL ALCOHOL (Unverified Allergy, Intermediate, 04/10/17) LEVOFLOXACIN (Verified Allergy, Intermediate, Rash, 10/19/14) SULFA (SULFONAMIDE ANTIBIOTICS) (Verified Allergy, Unknown, 04/28/19) Uncoded Allergies: satins (Allergy, Mild, Rash, 08/11/15) Patient History Past Medical History: DM, HTN, [place], CAD Past Surgical History: none Pertinent Family History: none Social History: Denies: smoking, alcohol use, drug use Immunizations: UTD Reviewed Nursing Documentation: PMH: Agreed; PSxH: Agreed Nursing Documentation-PMH Past Medical History: No History, Except For Hx Cardiac Problems: Yes - stent, heart attack 2014, bypass 2014 Hx Pacemaker: No - FOOT DROP JAN Hx Diabetes: Yes Review of Systems All Other Systems: negative except mentioned in HPI Physical Exam Vital Signs Date Time Temp Pulse Resp B/P (MAP) Pulse Ox O2 Delivery O2 Flow Rate FiO2 04/28/19 15:36 98.4 93 16 165/95 (118) 98 Room Air Sp02 EP Interpretation: reviewed, normal General Appearance: no apparent distress, alert, GCS 15, non-toxic Head: normocephalic, atraumatic Eyes: bilateral eye normal inspection, bilateral eye PERRL ENT: hearing grossly normal, normal pharynx, no angioedema, normal voice Neck: full range of motion, supple/symm/no masses Respiratory: chest non-tender, lungs clear, normal breath sounds, speaking full sentences Cardiovascular #1: regular rate, rhythm, no edema Cardiovascular #2: 2+ carotid (R), 2+ carotid (L), 2+ radial (R), 2+ radial (L) , 2+ dorsalis pedis (R), 2+ dorsalis pedis (L) Gastrointestinal: normal bowel sounds, non tender, soft, non-distended, no guarding, no rebound Rectal: deferred Genitourinary: normal inspection, no CVA tenderness Musculoskeletal: back normal, normal range of motion, gait/station normal, non- tender Neurologic: alert, motor strength/tone normal, oriented x3, sensory intact, responsive, speech normal Psychiatric: judgement/insight normal, memory normal, mood/affect normal, no suicidal/homicidal ideation Reflexes: 3+ bicep (R), 3+ bicep (L), 3+ tricep (R), 3+ tricep (L), 3+ knee (R) , 3+ knee (L) Skin: no rash Lymphatic: no adenopathy Medical Decision Making Diagnostic Impression: Primary Impression: Leg weakness Qualified Codes: R29.898 - Other symptoms and signs involving the musculoskeletal system ER Course Hospital Course 63 yo M presents wih weakness in lower legs. no pain. no trauma Differential diagnoses include: muscle cramps, sciatica, neuropathy Clinical course Patient placed on stretcher. After initial history then reveals middle-age male in no acute distress. On exam patient has no pain. No bony tenderness. 5 out of 5 strength in lower extremities. No sensory deficit. Patient walked in ED without difficulty. I discussed findings with patient. consideration for sciatica versus neuropathy. I offered imaging studies such as x-ray or CT. Patient declined. Patient will ultimately benefit from outpatient MRI. I will provide referrals. Patient agrees with plan. Safe for discharge for close outpatient follow-up Diagnosis - leg weakness Stable and discharged to assisted living. Followup with PMD/ortho. Return to ED if symptoms recur or worsen Last Vital Signs Date Time Temp Pulse Resp B/P (MAP) Pulse Ox O2 Delivery O2 Flow Rate FiO2 04/28/19 16:25 98.4 16 165/95 98 Room Air 04/28/19 16:00 93 Status: improved Disposition: ASSISTED LIVING Condition: Stable Referrals: NON PHYSICIAN (PCP) [facility] Open 24 hour /7 days a week by Appointment Only [address] [facility] [address] [facility] [address] [facility] [address] Patient Instructions: Sciatica With Rehab-[facility] Dixon Alfaro MD Apr 29, 2019 14:54
== END 2019-04-28 16:25 | disposition home or self-care (01) ==
LOC: EDBD 15:32 → EMR 16:20
DX: R29.898 Other symptoms and signs involving the musculoskeletal system (principal); E11.9 Type 2 diabetes mellitus without complications; I25.2 Old myocardial infarction; Z95.5 Presence of coronary angioplasty implant and graft; Z95.1 Presence of aortocoronary bypass graft; I11.9 Hypertensive heart disease without heart failure; I25.10 Atherosclerotic heart disease of native coronary artery without angina pectoris; Z88.2 Allergy status to sulfonamides
CPT/HCPCS: 99281